=== PATIENT | female | born 1995 | race Two or more races ===

== ENCOUNTER 2016-11-19 14:11 | Outpatient (CLI) | payer OTHER ==
[2016-11-19 15:07] VITALS: BMI 27.6
[2016-11-19 15:52] LABS: PH,URINE 6.5 (5.0-8.0); SPECIFIC GRAVITY 1.015 (1.001-1.030); URINE BILIRUBIN NEGATIVE (NEGATIVE); URINE BLOOD NEGATIVE (NEGATIVE); URINE GLUCOSE (UA) NEGATIVE (NEGATIVE); URINE LEUKOCYTE ESTERASE NEGATIVE (NEGATIVE); URINE NITRITE NEGATIVE (NEGATIVE); URINE PROTEIN NEGATIVE (NEGATIVE); URINE UROBILINOGEN NORMAL (0-1 mg/dl)
[2016-11-19 16:28] LABS: URINE APPEARANCE CLEAR; URINE COLOR YELLOW
== END 2016-11-19 16:48 | disposition home or self-care (01) ==
LOC: FBCOUT 14:11 → FBC 14:43 → FBCOUT 16:48
PROVIDERS: ATTEND Obstetrics & Gynecology
DX: O47.03 False labor before 37 completed weeks of gestation, third trimester (principal); Z3A.30 30 weeks gestation of pregnancy